=== PATIENT | male | born 1945 | race Caucasian/White ===

== ENCOUNTER → 2017-06-28 | Outpatient (CLI) | payer OTHER, MEDICARE ==
[~2017-06-28] VITALS: Ht 175.3 cm; Wt 78.3 kg
[~2017-06-28] MED LIST: NABUMETONE 750750 M1 PO
--- NOTE | ~2017-06-28 | HPC ---
[facility] [place] [address] PAIN MANAGEMENT CONSULTATION Name: TARAANABEL Hernandes Room #: REG [facility] Leandro.#: [id number] Admission: 06/28/17 Attend Phys: Cory Schmidt DO Discharge: Date of : 47 Report #: [id number] THIS REPORT FOR: //name// CC: Stanley Schmidt The patient is a pleasant 71-year-old gentleman, prior seen in the pain clinic on 06/07/2017, diagnosed with symptomatic lumbar radiculopathy and started on nabumetone 750 b.i.d., given a right L4-L5 transforaminal epidural injection under fluoroscopy. Returns to pain clinic today noting some 60% improvement of baseline pain. He is actually quite functionally improved. He did 1 hour of yoga the day before and 30 minutes on an elliptical yesterday. He rates his pain today as 3 on a VAS. Pain is in the right low back with some ongoing paresthesias down the foot. PHYSICAL EXAMINATION: Otherwise shows 71-year-old gentleman, BMI is 25.5 kilograms per meter squared. Blood pressure 144/79, pulse 66, respirations 16. Rises from chair using armrest. Gait is tandem. He is able to walk on his toes, but unable to walk on his right heel. Slight decreased right dorsiflexion strength with some paresthesia in this area. 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 ASSESSMENT: Symptomatic lumbar radiculopathy by clinical exam and history. RECOMMENDATION: Continue current range of motion activity. Continue nabumetone 750 b.i.d. That prescription was renewed. We will seek authorization to repeat epidural injection under fluoroscopy, right L4-L5 in 3 weeks if radicular symptoms continue, i.e., paresthesia in the right leg and inability to walk on right ankle. <ELECTRONICALLY SIGNED> By: Cory Schmidt DO 07/01/17 0943 [id number] 1321 Cory Schmidt DO /nt
[2017-06-28 15:04] VITALS: BP 144/79
== END ==
LOC: PAIN 07:22
DX: M54.16 Radiculopathy, lumbar region (principal)

== ENCOUNTER → 2017-08-09 | Outpatient (CLI) | payer OTHER, MEDICARE ==
[~2017-08-09] VITALS: Ht 175.3 cm; Wt 78.5 kg
[~2017-08-09] MED LIST changes: +ASPIR 8181 MG PO; +COZAAR 50 MG TA50 M2 PO; +LIPITOR80 MG PO; +PRALUENT P75 MG/1 ML SUBQ; +VASCEPA1 GM PO; +ZETIA10 MG PO; +ZOLOFT50 MG PO
--- NOTE | ~2017-08-09 | HPC ---
[facility] [place] [address] PAIN MANAGEMENT CONSULTATION Name: ANABEL PACHECO Room #: REG [facility] Leandro.#: [id number] Admission: 08/09/17 Attend Phys: Cory Schmidt DO Discharge: Date of : 47 Report #: [id number] THIS REPORT FOR: //name// CC: Stanley Schmidt HISTORY OF PRESENT ILLNESS: The patient is a very pleasant 72-year-old gentleman, prior seen in consultation on 06/07/2017 with acute lumbar radicular symptoms. We did a right L4-L5 transforaminal epidural injection with dramatic improvement of pain. The patient noted 60% improvement and he was doing well. He resumed yoga and working on his elliptical. Notes he was doing well when pain recurred following some yard work. Pain is in the low back, right buttock and leg. PHYSICAL EXAMINATION: GENERAL: Notes a pleasant 72-year-old gentleman appearing younger than stated age. VITAL SIGNS: BMI is 25.5 kg per meter squared. Vital signs otherwise stable. MUSCULOSKELETAL: Rises from chair using armrest, modestly antalgic gait. Positive straight leg raise bilaterally. Diffuse tenderness across the low back. No discrete trigger points are noted. We reviewed diagnostic findings including MRI from 05/09/2017 noting extruded disk material, right lateral L3-L4, L4-L5, noting some mild neural foraminal narrowing. ASSESSMENT: Symptomatic lumbar radiculopathy by clinical exam and history. RECOMMENDATION: Right L4-L5 transforaminal epidural injection today, recommend following up with Dr. Gm Sandoval, continue nabumetone 750 b.i.d. PROCEDURE NOTE PROCEDURE: Transforaminal epidural injection under fluoroscopy. DESCRIPTION OF PROCEDURE NOTE: After both written and informed consent was obtained including risk of spinal cord damage, infection, increased pain and paralysis, the patient agreed to proceed. The patient was taken to the fluoroscopy suite, placed in a prone position with appropriate abdominal bolstering. After sterile prep with ChloraPrep and sterile drape, a skin wheal with 1% Xylocaine was raised. A 22 gauge 4-1/2 inch epidural Tuohy needle was inserted. From an oblique approach into the posterior-superior aspect of the right L4-L5 neural foramen with continuous pressure on the glass syringe plunger for loss of resistance. Glass syringe was filled with 2 cc of 0.1 Xylocaine. The glass loss of resistance syringe was removed. A low volume extension tubing was connected, negative aspiration was accomplished for cerebrospinal fluid or blood. 1 mL of Omnipaque was injected which showed spread both within the [facility] [address] [place] [address] PAIN MANAGEMENT CONSULTATION Name: ANABEL PACHECO Room #: [facility]O Sousa#: [id number] Admission: 08/09/17 Attend Phys: Cory Schmidt DO Discharge: Date of : 47 Report #: [id number] epidural space and laterally along the nerve root. This was followed with 80 mg of triamcinolone plus 1 mL of 1.5% preservative-free Xylocaine. Needle was partially withdrawn, 0.5 mL of Xylocaine was injected to clear the needle and the needle was removed. The area was cleansed, Band-Aid was applied. The patient was allowed to ambulate to the recovery room, discharged in good and stable condition. <ELECTRONICALLY SIGNED> By: Cory Schmidt DO 08/12/17 0709 [id number] 2059 Cory Schmidt DO /nt
[2017-08-09 10:58] VITALS: BP 139/80
== END | disposition home or self-care (01) ==
LOC: PAIN 07:34
DX: M54.16 Radiculopathy, lumbar region (principal); G89.29 Other chronic pain; Z79.82 Long term (current) use of aspirin; Z79.899 Other long term (current) drug therapy